=== PATIENT | male | born 1970 | race Caucasian/White ===

== ENCOUNTER 2019-08-06 | Emergency (ER) | payer SELFPAY ==
[2019-08-06] MEDS ORDERED: IBUPROFEN600 MG PO (03:14)
[2019-08-06] MEDS ORDERED: ORPHENADRINE100 MG PO (03:14)
== END 2019-08-06 03:21 | disposition home or self-care (01) | DRG 552 ==
DX: M43.6 Torticollis (principal)

== ENCOUNTER 2020-11-20 19:36 | Emergency (ER) | payer SELFPAY ==
[~2020-11-20] VITALS: Ht 177.8 cm; Wt 109.0 kg
[~2020-11-20 19:36] MED LIST: IBUPROFEN600 MG PO; ORPHENADRINE100 MG PO
[2020-11-20] MEDS ORDERED: CODEINE/GUAIFEN1 SOL PO (21:18)
[2020-11-20] MEDS ORDERED: PROVENTIL HFA IN (21:18)
[2020-11-20 21:22] VITALS: BP 116/74
== END 2020-11-20 21:29 | disposition home or self-care (01) | DRG 203 ==
LOC: ED 19:36
DX: J40 Bronchitis, not specified as acute or chronic (principal); E11.9 Type 2 diabetes mellitus without complications; Z20.822 Contact with and (suspected) exposure to COVID-19

== ENCOUNTER 2024-09-01 18:30 | Emergency (ER) | payer OTHER ==
[~2024-09-01] VITALS: Ht 177.8 cm; Wt 56.0 kg
[~2024-09-01 18:30] MED LIST changes: +CODEINE/GUAIFEN1 SOL PO; +PROVENTIL HFA IN
[2024-09-01] MEDS ORDERED: AMOX/K CLAV875 M1 PO (18:37)
[2024-09-01] MEDS ORDERED: EC-NAPROXEN500 MG PO (18:38)
[2024-09-01] MEDS ORDERED: AMOXICILLIN & POT CLAVULANATE 875 MG/TAB PO ONE (18:40)
[2024-09-01] MEDS ORDERED: KETOROLAC TROMETHAMINE 30 MG/ML SDV IM ONE (18:40)
[2024-09-01 18:54] VITALS: BP 138/68
== END 2024-09-01 19:03 | disposition home or self-care (01) | DRG 159 ==
LOC: ED 18:30
DX: K08.89 Other specified disorders of teeth and supporting structures (principal); E11.9 Type 2 diabetes mellitus without complications